=== PATIENT | male | born 1995 | race Caucasian/White ===

== ENCOUNTER 2018-02-15 03:04 | Emergency (ER) | payer BC ==
[~2018-02-15] VITALS: Ht 193 cm; Wt 102.1 kg
[2018-02-15] MEDS ORDERED: ROBAXIN500 MG PO (03:36)
[2018-02-15] MEDS ORDERED: IBUPROFEN600 MG ORAL (03:36)
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
[2018-02-15] MEDS ORDERED: Norco 5mg/325mg tab ORAL ONE (03:45)
[2018-02-15 03:51] VITALS: BP 148/66
== END 2018-02-15 03:55 | disposition home or self-care (01) ==
LOC: EMR 03:30
DX: T14.8XXA Other injury of unspecified body region, initial encounter (principal); V43.62XA Car passenger injured in collision with other type car in traffic accident, initial encounter; Y92.9 Unspecified place or not applicable
CPT/HCPCS: 99284